=== PATIENT | female | born 1985 | race American Indian/Alaskan Native ===

== ENCOUNTER 2019-04-04 09:35 | Emergency (ER) | payer SELFPAY ==
--- NOTE | 2019-04-04 10:42 | Emergency Department Report ---
ED General Adult HPI - General Chief complaint: Headache Stated complaint: HBP/HEADACHE Time Seen by Provider: 04/04/19 10:15 Source: patient Mode of arrival: Ambulatory Limitations: No Limitations - Related Data Previous Rx's Medication Instructions Recorded Last Taken Type amLODIPine 10 mg PO DAILY #10 tab 04/04/19 Unknown Rx Allergies Allergy/AdvReac Type Severity Reaction Status Date / Time No Known Allergies Allergy Unverified 04/04/19 09:38 ED Review of Systems ROS: Stated complaint: HBP/HEADACHE Other details as noted in HPI Comment: All other systems reviewed and negative ED Past Medical Hx - Past Medical History Previous Medical History?: Yes Hx Hypertension: Yes - Surgical History Past Surgical History?: Yes Additional Surgical History: "ovarian cyst surgery." - Social History Smoking Status: Current Every Day Smoker Substance Use Type: Marijuana - Medications Home Medications: Home Medications Medication Instructions Recorded Confirmed Last Taken Type amLODIPine 10 mg PO DAILY #10 tab 04/04/19 Unknown Rx ED Physical Exam - General Limitations: No Limitations General appearance: alert, in no apparent distress - Head Head exam: Present: atraumatic, normocephalic - Eye Eye exam: Present: normal appearance, PERRL, EOMI. Absent: conjunctival injection, periorbital swelling Pupils: Present: normal accommodation - ENT ENT exam: Present: normal exam, normal orophraynx, mucous membranes moist, TM's normal bilaterally - Neck Neck exam: Present: normal inspection, full ROM - Respiratory Respiratory exam: Present: normal lung sounds bilaterally. Absent: respiratory distress, wheezes, rales, rhonchi, chest wall tenderness, accessory muscle use, decreased breath sounds - Cardiovascular Cardiovascular Exam: Present: regular rate, normal rhythm. Absent: systolic murmur, diastolic murmur, rubs, gallop - GI/Abdominal GI/Abdominal exam: Present: soft, normal bowel sounds - Extremities Exam Extremities exam: Present: normal inspection, full ROM, normal capillary refill - Back Exam Back exam: Present: normal inspection. Absent: CVA tenderness (R), CVA tenderness (L) - Neurological Exam Neurological exam: Present: alert, oriented X3, CN II-XII intact, normal gait - Psychiatric Psychiatric exam: Present: normal affect, normal mood - Skin Skin exam: Present: warm, dry, intact, normal color. Absent: rash, cyanosis, diaphoretic, erythema, urticaria, petechiae, pallor, abrasion ED Course Vital Signs 04/04/19 09:41 Temperature 97.7 F Pulse Rate 101 H Respiratory 16 Rate Blood Pressure 181/104 O2 Sat by Pulse 100 Oximetry ED Medical Decision Making - Medical Decision Making 33-year-old female since emergency Department complaining of hypertension and seeking to have clearance for plasma donation. History alcohol medication for 6 months and try to present today was found to have a blood pressure 180/100. States that she did have a dental mild headache but asymptomatic at current no chest pain or palpitations no shortness of breath no blurred vision no ataxia. No weakness, shortness of breath, no palpitations or chest pain. Due to the [employer] physician guidelines treatment is not warranted at this time and she was for a 2 registration for MSE screening and satisfied necessary requirements to move forward with the disposition. Critical care attestation.: If time is entered above; I have spent that time in minutes in the direct care of this critically ill patient, excluding procedure time. ED Disposition Clinical Impression: HTN (hypertension) Disposition: DC-01 TO HOME OR SELFCARE Is pt being admited?: No Does the pt Need Aspirin: No Condition: Stable Instructions: Hypertension (ED), DASH Eating Plan (ED) Prescriptions: amLODIPine 10 mg PO DAILY #10 tab Referrals: [facility] [Provider Group] - 3-5 Days
[2019-04-04 11:10] VITALS: BP 180/100
== END 2019-04-04 11:09 | disposition home or self-care (01) ==
LOC: ED 09:35
DX: I10 Essential (primary) hypertension (principal); R51 Headache; F17.200 Nicotine dependence, unspecified, uncomplicated; F12.10 Cannabis abuse, uncomplicated; Z79.899 Other long term (current) drug therapy